=== PATIENT | female | born 1990 | race Asian ===

== ENCOUNTER 2018-03-18 15:35 | Emergency (ER) | payer MEDICAID ==
[~2018-03-18] VITALS: Ht 157.5 cm; Wt 49.0 kg
[2018-03-18] MEDS ORDERED: NACL 0.9% 1,000 ML IV ONE ×2 (15:39→17:15)
[2018-03-18 15:42] VITALS: BP_SYST 108
[2018-03-18 16:06] LABS: EOSINOPHILS # (AUTO) 0.2 K/uL (0.0-0.4); LYMPHOCYTES # (AUTO) 1.7 K/uL (1.0-5.5); LYMPHOCYTES % (AUTO) 27.5 % (20.5-51.5); MONOCYTES # (AUTO) 0.5 K/uL (0.0-1.0); MONOCYTES % (AUTO) 7.5 % (1.7-9.3); WHITE BLOOD COUNT (AUTO) 6.3 K/uL (4.8-10.8)
[2018-03-18 16:12] LABS: BILIRUBIN,URINE NEGATIVE (NEGATIVE); BLOOD, URINE 2+ (NEGATIVE); CLARITY/URINE SL HAZY (CLEAR); COLOR,URINE YELLOW (YELLOW); GLUCOSE,URINE NEGATIVE (NEGATIVE); KETONES,URINE 1+ (NEGATIVE); LEUKOCYTE ESTERASE ,URINE NEGATIVE (NEGATIVE); NITRITE, URINE NEGATIVE (NEGATIVE); PROTEIN URINE TRACE (NEGATIVE); UROBILINOGEN,URINE 0.2 (0.2-1.0)
[2018-03-18 16:14] LABS: BASOPHILS # (AUTO) 0.1 K/uL (0.0-0.2); BASOPHILS % (AUTO) 1.8 % (0.0-2.0); EOSINOPHILS % (AUTO) 3.5 % (0.0-4.0); HEMATOCRIT 42.7 % (36-48); HEMOGLOBIN 14.4 g/dL (12.0-16.0); MEAN CORPUSCULAR HEMOGLOBIN 31 pg (27-31); MEAN CORPUSCULAR HGB CONC 34 % (32-36); MEAN CORPUSCULAR VOLUME 92 fL (79.0-98.0); NEUTROPHILS # (AUTO) 3.8 K/uL (1.8-7.7); NEUTROPHILS % (AUTO) 59.7 % (40.0-70.0); PLATELET COUNT (AUTO) 313 K/uL (130-430); RED BLOOD CELL COUNT(AUTO) 4.65 MIL/uL (4.2-6.2); RED CELL DISTRIBUTION WIDTH 11.5 % (9.0-15.0)
[2018-03-18 16:19] LABS: INR 1.1 (0.8-1.2); PROTHROMBIN TIME 10.8 SECS (9.5-12.5)
[2018-03-18 17:03] LABS: BACTERIA,URINE FEW /HPF (None Seen); WBC,URINE 0-3 /HPF (0-3)
[2018-03-18 17:12] LABS: BARBITURATE, URINE NEGATIVE (NEG <=200); BENZODIAZEPINE, URINE NEGATIVE (NEG <=150); CANNABINOID, URINE NEGATIVE (NEG <=50); COCAINE, URINE NEGATIVE (NEG <=150); METHAMPHETAMINES SCREEN,URINE NEGATIVE (NEG <=500); OPIATE, URINE NEGATIVE (NEG <=100); PHENCYCLIDINE SCREEN,URINE NEGATIVE (NEG <=25); UR TRICYCLIC ANTIDEPRESSANTS NEGATIVE (NEG <=300); URINE AMPHETAMINE NEGATIVE (NEG <=500); URINE METHADONE NEGATIVE (NEG <=200); URINE OXYCODONE SCREEN NEGATIVE (NEG <=100); URINE PROPOXYPHENE SCREEN NEGATIVE (NEG <=300)
[2018-03-18 17:26] LABS: CALCIUM 8.7 mg/dL (8.4-11.0); CREATININE 0.65 mg/dL (0.55-1.30); POTASSIUM 3.5 mmol/L (3.5-5.1)
[2018-03-18 17:30] LABS: ALBUMIN 4.2 g/dL (3.4-4.8); TOTAL BILIRUBIN 0.8 mg/dL (0.0-1.0)
[2018-03-18 17:50] VITALS: BP_SYST 108
== END 2018-03-18 17:50 | disposition home or self-care (01) ==
LOC: SED 16:35
DX: R00.2 Palpitations (principal); R63.0 Anorexia; R42 Dizziness and giddiness; R06.02 Shortness of breath
CPT/HCPCS: 36415; 71045; 80053; 80307; 81000; 81025; 82150; 82550; 83690; 84484; 85025; 85610; 85730; 93005; 96360; 99285; J7030